=== PATIENT | female | born 1960 | race Caucasian/White ===

== ENCOUNTER 2017-01-31 14:19 | Emergency (ER) | payer MEDICAID ==
[2017-01-31 16:51] VITALS: BP 132/79
== END 2017-01-31 16:51 | disposition home or self-care (01) ==
LOC: ED 14:19
DX: S53.401A Unspecified sprain of right elbow, initial encounter (principal); S93.504A Unspecified sprain of right lesser toe(s), initial encounter; S63.501A Unspecified sprain of right wrist, initial encounter; S63.91XA Sprain of unspecified part of right wrist and hand, initial encounter; S33.5XXA Sprain of ligaments of lumbar spine, initial encounter; I10 Essential (primary) hypertension; Z88.1 Allergy status to other antibiotic agents; Z88.5 Allergy status to narcotic agent; V49.9XXA Car occupant (driver) (passenger) injured in unspecified traffic accident, initial encounter; Y93.89 Activity, other specified; Y99.8 Other external cause status; Y92.89 Other specified places as the place of occurrence of the external cause

== ENCOUNTER 2017-02-02 11:09 | Emergency (ER) | payer MEDICAID ==
[~2017-02-02] VITALS: Ht 157.5 cm; Wt 71.0 kg
[2017-02-02 14:26] VITALS: BP 151/98
== END 2017-02-02 14:26 | disposition home or self-care (01) ==
LOC: ED 11:09
DX: H81.10 Benign paroxysmal vertigo, unspecified ear (principal)
CPT/HCPCS: J1885; J8597; Q0162

== ENCOUNTER 2020-01-27 09:53 | Inpatient (IN) | payer OTHER ==
[~2020-01-27] VITALS: Ht 157.5 cm; Wt 69.9 kg
[2020-01-27 10:02] VITALS: Ht 157.5 cm; Wt 69.9 kg
[2020-01-27 10:43] LABS: PLATELET COUNT 326 x10^3mcL (130-400); RED CELL DISTRIBUTION WIDTH 13.2 % (11.5-14.5)
[2020-01-27 10:47] LABS: BASOPHIL % 3.6 % (0-2)
[2020-01-27 10:59] LABS: CARBON DIOXIDE 26.3 mmol/L (21-32)
[2020-01-27 11:04] LABS: ALBUMIN 3.7 g/dL (3.4-5.0); BILIRUBIN TOTAL 0.9 mg/dL (0.20-1.00); TOTAL PROTEIN, SERUM 7.8 g/dL (6.4-8.2)
[2020-01-27] MEDS ORDERED: COZAAR50 M1 PO (14:10)
[2020-01-27 15:00] VITALS: BP 143/78
[2020-01-27 23:02] VITALS: BP 151/88
[2020-01-28 06:33] VITALS: BP 150/79
[2020-01-28 06:59] LABS: BASOPHIL % 0.3 % (0-2); PLATELET COUNT 317 x10^3mcL (130-400); RED CELL DISTRIBUTION WIDTH 13.5 % (11.5-14.5)
[2020-01-28 07:20] LABS: CALCIUM 9.5 mg/dL (8.5-10.1); CARBON DIOXIDE 27.6 mmol/L (21-32); CHLORIDE SERUM 103 mmol/L (98-107); CREATININE SERUM 0.9 mg/dL (0.6-1.0); GFR1 > 60 mL/min; GLUCOSE SERUM 129 mg/dL (74-106); MAGNESIUM 2.2 mg/dL (1.8-2.4); PHOSPHOROUS 4.5 mg/dL (2.5-4.9); POTASSIUM SERUM 4.2 mmol/L (3.5-5.1); SODIUM SERUM 138 mmol/L (136-145)
[2020-01-28 08:52] VITALS: BP 115/70
[2020-01-28 11:59] VITALS: BP 120/83
[2020-01-28 16:28] VITALS: BP 120/69
[2020-01-28 19:16] LABS: microscopic required? NO
[2020-01-28 19:58] LABS: urine erythrocyte NEGATIVE (NEGATIVE)
[2020-01-28 20:08] LABS: AMPHETAMINE QUAL UR NONE DETECTED (See below)
[2020-01-28 21:17] VITALS: BP 109/70
[2020-01-29] VITALS (8 sets, daily range): BP systolic 115–171; BP diastolic 58–93
[2020-01-29 07:26] LABS: BASOPHIL % 0.2 % (0-2); PLATELET COUNT 297 x10^3mcL (130-400)
[2020-01-29 07:53] LABS: CALCIUM 8.6 mg/dL (8.5-10.1); CARBON DIOXIDE 25.6 mmol/L (21-32); CHLORIDE SERUM 102 mmol/L (98-107); CREATININE SERUM 0.8 mg/dL (0.6-1.0); GFR1 > 60 mL/min; GLUCOSE SERUM 195 mg/dL (74-106); MAGNESIUM 2.1 mg/dL (1.8-2.4); PHOSPHOROUS 2.4 mg/dL (2.5-4.9); POTASSIUM SERUM 4.2 mmol/L (3.5-5.1); SODIUM SERUM 136 mmol/L (136-145)
[2020-01-30 05:41] VITALS: BP 142/83
[2020-01-30 07:04] LABS: BASOPHIL % 0.2 % (0-2); PLATELET COUNT 311 x10^3mcL (130-400); RED CELL DISTRIBUTION WIDTH 13.3 % (11.5-14.5)
[2020-01-30 07:13] LABS: CALCIUM 8.7 mg/dL (8.5-10.1); CARBON DIOXIDE 23.1 mmol/L (21-32); MAGNESIUM 2.2 mg/dL (1.8-2.4); PHOSPHOROUS 3.6 mg/dL (2.5-4.9); POTASSIUM SERUM 3.8 mmol/L (3.5-5.1)
[2020-01-30 08:25] VITALS: BP 130/80
[2020-01-30 11:33] VITALS: BP 122/70
[2020-01-30 16:42] VITALS: BP 133/75
[2020-01-30 20:24] VITALS: BP 119/72
[2020-01-31 05:08] VITALS: BP 138/78
[2020-01-31 06:40] LABS: BASOPHIL % 1.7 % (0-2); PLATELET COUNT 292 x10^3mcL (130-400); RED CELL DISTRIBUTION WIDTH 13.4 % (11.5-14.5)
[2020-01-31 06:54] LABS: CALCIUM 8.4 mg/dL (8.5-10.1); CARBON DIOXIDE 24.4 mmol/L (21-32); CHLORIDE SERUM 102 mmol/L (98-107); CREATININE SERUM 0.9 mg/dL (0.6-1.0); GFR1 > 60 mL/min; GLUCOSE SERUM 254 mg/dL (74-106); MAGNESIUM 2.2 mg/dL (1.8-2.4); PHOSPHOROUS 3.2 mg/dL (2.5-4.9); POTASSIUM SERUM 3.9 mmol/L (3.5-5.1); SODIUM SERUM 138 mmol/L (136-145)
[2020-01-31 10:12] VITALS: BP 139/84
[2020-01-31 12:45] VITALS: BP 145/77
[2020-01-31 17:13] VITALS: BP 123/68
[2020-01-31 21:00] VITALS: BP 113/81
[2020-02-01 05:58] VITALS: BP 137/84
[2020-02-01 08:02] LABS: CALCIUM 8.8 mg/dL (8.5-10.1); CARBON DIOXIDE 26.8 mmol/L (21-32); CHLORIDE SERUM 103 mmol/L (98-107); CREATININE SERUM 0.8 mg/dL (0.6-1.0); GFR1 > 60 mL/min; GLUCOSE SERUM 232 mg/dL (74-106); MAGNESIUM 2.5 mg/dL (1.8-2.4); PHOSPHOROUS 3.4 mg/dL (2.5-4.9); POTASSIUM SERUM 4.1 mmol/L (3.5-5.1); SODIUM SERUM 136 mmol/L (136-145)
[2020-02-01 09:20] LABS: BASOPHIL % 0.2 % (0-2); PLATELET COUNT 296 x10^3mcL (130-400); RED CELL DISTRIBUTION WIDTH 13.7 % (11.5-14.5)
[2020-02-01 09:34] VITALS: BP 146/79
[2020-02-01] MEDS ORDERED: DEC1 PO (11:38)
[2020-02-01] MEDS ORDERED: ELIQUIS5 M1 PO (11:39)
[2020-02-01 13:51] VITALS: BP 116/70
[2020-02-01 14:00] VITALS: BP 116/70
== END 2020-02-01 16:26 | disposition home or self-care (01) | DRG 871 ==
LOC: ED 09:53 → DU 13:03
PROVIDERS: Emergency Medicine; Student in an Organized Health Care Education/Training Program; ADMIT Internal Medicine; ATTEND Internal Medicine
DX: A41.9 Sepsis, unspecified organism (principal); J96.01 Acute respiratory failure with hypoxia; U07.1 COVID-19; J12.89 Other viral pneumonia; I10 Essential (primary) hypertension; Z88.5 Allergy status to narcotic agent; Z88.1 Allergy status to other antibiotic agents; Z86.711 Personal history of pulmonary embolism; Z83.3 Family history of diabetes mellitus; Z82.49 Family history of ischemic heart disease and other diseases of the circulatory system
CPT/HCPCS: 83880; 85378; 87804; G0378; J0360; J0456; J0696; J1650; J3535; J7030; J7040; J7060; J8540; Q0092; Q9967; U0003-CS

== ENCOUNTER 2020-02-05 14:16 | Inpatient (IN) | payer SELFPAY ==
[~2020-02-05] VITALS: Ht 157.5 cm; Wt 73.5 kg
[~2020-02-05 14:16] MED LIST: COZAAR50 M1 PO; DEC1 PO; ELIQUIS5 M1 PO
[2020-02-05 15:22] VITALS: Ht 157.5 cm; Wt 73.5 kg
[2020-02-05 15:45] LABS: BASOPHIL % 0.1 % (0-2); PLATELET COUNT 283 x10^3mcL (130-400); RED CELL DISTRIBUTION WIDTH 14.1 % (11.5-14.5)
[2020-02-05 16:07] LABS: CALCIUM 9.1 mg/dL (8.5-10.1); CARBON DIOXIDE 25.7 mmol/L (21-32); POTASSIUM SERUM 4.2 mmol/L (3.5-5.1)
[2020-02-05 16:11] LABS: ALBUMIN 3.7 g/dL (3.4-5.0); BILIRUBIN TOTAL 0.35 mg/dL (0.20-1.00); C REACTIVE PROTEIN 0.6 mg/dL (<=0.9); TOTAL PROTEIN, SERUM 7.6 g/dL (6.4-8.2)
[2020-02-05 17:40] LABS: microscopic required? NO
[2020-02-05 17:58] LABS: UA SPECIFIC GRAVITY 1.015 (1.005-1.035); urine erythrocyte NEGATIVE (NEGATIVE)
[2020-02-05 18:23] LABS: MAGNESIUM 2.6 mg/dL (1.8-2.4); PHOSPHOROUS 3.2 mg/dL (2.5-4.9); T3 TOTAL 0.63 ng/mL
[2020-02-05 18:25] LABS: CHOLESTEROL/HDL RATIO 3.2
[2020-02-05 18:33] LABS: FREE T4 0.98 ng/dL (0.76-1.46); FREE THYROXINE INDEX 2.9 ug/dL (1.4-4.5); T4(THYROXINE) 8.6 ug/dL (4.7-13.3)
[2020-02-05 18:46] LABS: AMPHETAMINE QUAL UR NONE DETECTED (See below)
[2020-02-06 00:20] VITALS: BP 170/86
[2020-02-06 06:00] VITALS: BP 149/77
[2020-02-06 07:35] LABS: BASOPHIL % 0.2 % (0-2); PLATELET COUNT 269 x10^3mcL (130-400); RED CELL DISTRIBUTION WIDTH 13.6 % (11.5-14.5)
[2020-02-06 07:55] LABS: C REACTIVE PROTEIN 0.4 mg/dL (<=0.9); CALCIUM 8.5 mg/dL (8.5-10.1); CARBON DIOXIDE 24.9 mmol/L (21-32); CHLORIDE SERUM 100 mmol/L (98-107); CREATININE SERUM 0.9 mg/dL (0.6-1.0); GFR1 > 60 mL/min; GLUCOSE SERUM 254 mg/dL (74-106); MAGNESIUM 2.5 mg/dL (1.8-2.4); PHOSPHOROUS 3.3 mg/dL (2.5-4.9); POTASSIUM SERUM 4.1 mmol/L (3.5-5.1); SODIUM SERUM 134 mmol/L (136-145)
[2020-02-06 09:31] VITALS: BP 152/73
[2020-02-06 12:40] VITALS: BP 142/80
[2020-02-06 17:44] VITALS: BP 125/68
[2020-02-06 21:56] VITALS: BP 108/58
[2020-02-07 04:50] VITALS: BP 129/76
[2020-02-07 07:38] LABS: BASOPHIL % 0.1 % (0-2); PLATELET COUNT 240 x10^3mcL (130-400); RED CELL DISTRIBUTION WIDTH 13.9 % (11.5-14.5)
[2020-02-07 07:54] LABS: CALCIUM 8.4 mg/dL (8.5-10.1); CARBON DIOXIDE 24.9 mmol/L (21-32); CHLORIDE SERUM 100 mmol/L (98-107); CREATININE SERUM 0.8 mg/dL (0.6-1.0); GFR1 > 60 mL/min; GLUCOSE SERUM 209 mg/dL (74-106); MAGNESIUM 2.4 mg/dL (1.8-2.4); PHOSPHOROUS 3.3 mg/dL (2.5-4.9); POTASSIUM SERUM 4.3 mmol/L (3.5-5.1); SODIUM SERUM 133 mmol/L (136-145)
[2020-02-07 08:31] LABS: C REACTIVE PROTEIN 0.2 mg/dL (<=0.9)
[2020-02-07 09:08] VITALS: BP 125/76
[2020-02-07 13:16] VITALS: BP 122/62
[2020-02-07] MEDS ORDERED: LEVOFLOXACIN500 M1 PO (14:59)
[2020-02-07] MEDS ORDERED: HYDROXYZINE HYD25 MG PO (15:00)
[2020-02-07 15:43] VITALS: BP 122/62
[2020-02-07 17:02] VITALS: BP 153/79
== END 2020-02-07 17:12 | disposition home or self-care (01) | DRG 871 ==
LOC: ED 14:16 → DU 17:31 → MU 17:31 → DU 23:50 → MU 02-06 17:31
PROVIDERS: Emergency Medicine; ADMIT Family Medicine; ATTEND Family Medicine
DX: A41.89 Other specified sepsis (principal); U07.1 COVID-19; J96.01 Acute respiratory failure with hypoxia; J12.89 Other viral pneumonia; E87.1 Hypo-osmolality and hyponatremia; E83.41 Hypermagnesemia; I10 Essential (primary) hypertension; D72.829 Elevated white blood cell count, unspecified; Z86.711 Personal history of pulmonary embolism; Z88.1 Allergy status to other antibiotic agents; Z88.5 Allergy status to narcotic agent; Z83.3 Family history of diabetes mellitus; Z82.49 Family history of ischemic heart disease and other diseases of the circulatory system; Z88.0 Allergy status to penicillin
CPT/HCPCS: 36600; 83880; 84439; 85378; 87804; G0378; J1644; J1956; J7030; J8540; U0003-CS

== ENCOUNTER 2020-02-24 12:05 | Emergency (ER) | payer MEDICAID, SELFPAY ==
[~2020-02-24] VITALS: Ht 157.5 cm; Wt 68.0 kg
[~2020-02-24 12:05] MED LIST changes: +HYDROXYZINE HYD25 MG PO; +LEVOFLOXACIN500 M1 PO
[2020-02-24 12:27] VITALS: Ht 157.5 cm; Wt 68.0 kg
[2020-02-24 13:32] LABS: BASOPHIL % 0.4 % (0-2); PLATELET COUNT 215 x10^3mcL (130-400); RED CELL DISTRIBUTION WIDTH 14.3 % (11.5-14.5)
[2020-02-24 13:43] LABS: CALCIUM 9.8 mg/dL (8.5-10.1); CARBON DIOXIDE 28.4 mmol/L (21-32); CREATININE SERUM 1.1 mg/dL (0.6-1.0); POTASSIUM SERUM 3.1 mmol/L (3.5-5.1)
[2020-02-24 13:49] LABS: ALBUMIN 3.6 g/dL (3.4-5.0); BILIRUBIN TOTAL 0.48 mg/dL (0.20-1.00); C REACTIVE PROTEIN 3.7 mg/dL (<=0.9); TOTAL PROTEIN, SERUM 7.6 g/dL (6.4-8.2)
[2020-02-24 14:04] LABS: microscopic required? NO
[2020-02-24 14:39] LABS: urine erythrocyte NEGATIVE (NEGATIVE)
[2020-02-24 17:36] VITALS: BP 124/34
== END 2020-02-24 17:36 | disposition home or self-care (01) ==
LOC: ED 12:05
PROVIDERS: Specialist
DX: E87.6 Hypokalemia (principal); R06.02 Shortness of breath; R05 Cough; R50.9 Fever, unspecified; I10 Essential (primary) hypertension; Z20.828 Contact with and (suspected) exposure to other viral communicable diseases; Z86.2 Personal history of diseases of the blood and blood-forming organs and certain disorders involving the immune mechanism; Z88.5 Allergy status to narcotic agent; Z88.0 Allergy status to penicillin; Z88.1 Allergy status to other antibiotic agents
CPT/HCPCS: 36600; 83880; 87804; J7030; Q0092; U0003-CS